=== PATIENT | female | born 1995 | race Caucasian/White ===

== ENCOUNTER 2017-01-30 16:42 | Emergency (ER) | payer SELFPAY ==
[2017-01-30] MEDS ORDERED: XYLOCAINE 2%/EPI 1:100,000 INFILTRATI ONE (19:24)
[2017-01-30] MEDS ORDERED: ULTRAM PO ONE (19:25)
[2017-01-30 20:53] VITALS: BP 122/84
--- NOTE | 2017-01-30 20:53 | Emergency Department Report ---
Entered by MEGAN ACOSTA, acting as scribe for ENRIQUETA FERNANDEZ NP. - General Chief complaint: Skin/Abscess/Foreign Body Stated complaint: CYST UPPER BACK OF NECK Time Seen by Provider: 01/30/17 18:54 Source: patient Mode of arrival: Ambulatory Limitations: No Limitations - History of Present Illness Initial comments: 22 y/o female with no significant PMHx, presents to the ED c/o area of swelling/ possible boil on the right posterior shoulder area beginning 4 days ago. She states the swelling increased the first two days after presentation, but has actually improved in the last 2 days. Associated symptoms of headache, and neck and back pain that is "aching" in quality, but she denies headache in the ED, nausea, vomiting, diarrhea, fever, numbness, and weakness. Noted the patient has a corporate driver to take her home and denies that she drove to the ED today. MD complaint: abscess/boil -: days(s) (4) Location: back (right posterior shoulder) Severity: severe Severity scale (0 -10): 10 Quality: aching, constant Consistency: constant Improves with: none Worsens with: palpation Context: none, other (unknw) Associated symptoms: other (headache, back pain, neck pain, but she denies headache in the ED, fever, nausea, vomiting, diarrhea) Treatments Prior to Arrival: none - Related Data Previous Rx's Medication Instructions Recorded Last Taken Type HYDROcodone/APAP 7.5-325 [Brinkley 1 each PO Q6HR PRN 5 Days 01/30/17 Unknown Rx 7.5/325] Sulfamethoxazole/Trimethoprim 1 each PO BID 7 Days 01/30/17 Unknown Rx [Bactrim DS TAB] Allergies Allergy/AdvReac Type Severity Reaction Status Date / Time tomato Allergy Swelling Verified 01/30/17 16:55 Abscess Boil HPI - HPI Chief Complaint: Skin/Abscess/Foreign Body Stated Complaint: CYST UPPER BACK OF NECK Time Seen by Provider: 01/30/17 18:54 Home Medications: Previous Rx's Medication Instructions Recorded Last Taken Type HYDROcodone/APAP 7.5-325 [Brinkley 1 each PO Q6HR PRN 5 Days 01/30/17 Unknown Rx 7.5/325] Sulfamethoxazole/Trimethoprim 1 each PO BID 7 Days 01/30/17 Unknown Rx [Bactrim DS TAB] Allergies/Adverse Reactions: Allergies Allergy/AdvReac Type Severity Reaction Status Date / Time tomato Allergy Swelling Verified 01/30/17 16:55 ED Review of Systems Comment: All other systems reviewed and negative Constitutional: denies: fever Eyes: denies: eye pain, eye discharge, vision change ENT: denies: ear pain, throat pain Respiratory: denies: cough, shortness of breath, wheezing Cardiovascular: denies: chest pain, palpitations Endocrine: no symptoms reported Gastrointestinal: denies: nausea, vomiting, diarrhea Genitourinary: denies: urgency, dysuria, discharge Musculoskeletal: back pain ("aching", from the boil on the right posterior back) Skin: other (area of swelling on the right posterior shoulder, denies drainage from the affected area) Neurological: headache (but patient denies headache) Psychiatric: denies: anxiety, depression Hematological/Lymphatic: denies: easy bleeding, easy bruising ED Past Medical Hx - Past Medical History Previous Medical History?: No - Surgical History Hx Breast Surgery: Yes (BREAST REDUCTION) - Social History Smoking Status: Never Smoker Substance Use Type: None - Medications Home Medications: Home Medications Medication Instructions Recorded Confirmed Last Taken Type HYDROcodone/APAP 7.5-325 [Brinkley 1 each PO Q6HR PRN 5 Days 01/30/17 Unknown Rx 7.5/325] Sulfamethoxazole/Trimethoprim 1 each PO BID 7 Days 01/30/17 Unknown Rx [Bactrim DS TAB] ED Physical Exam - General Limitations: No Limitations General appearance: alert, in no apparent distress - Head Head exam: Present: atraumatic, normocephalic - Eye Eye exam: Present: normal appearance, EOMI - ENT ENT exam: Present: normal external ear exam - Neck Neck exam: Present: normal inspection, full ROM. Absent: tenderness - Respiratory Respiratory exam: Present: normal lung sounds bilaterally. Absent: respiratory distress, wheezes, rales, rhonchi, stridor - Cardiovascular Cardiovascular Exam: Present: regular rate, normal rhythm, normal heart sounds. Absent: systolic murmur, diastolic murmur, rubs, gallop - GI/Abdominal GI/Abdominal exam: Present: soft. Absent: distended, tenderness - Extremities Exam Extremities exam: Present: normal inspection, full ROM - Back Exam Back exam: Present: full ROM, other (noted is a 4 cm abscess on the right posterior shoulder area that is fluctuant and tender to palpation, area is edematous) - Neurological Exam Neurological exam: Present: alert, oriented X3, CN II-XII intact, normal gait - Psychiatric Psychiatric exam: Present: normal affect, normal mood - Skin Skin exam: Present: warm, dry, intact, normal color, other (noted is a 4 cm abscess on the right posterior shoulder area that is fluctuant, edematous, and tender to palpation). Absent: rash ED Course Vital Signs 01/30/17 16:58 Temperature 98.1 F Pulse Rate 87 Respiratory 18 Rate Blood Pressure 136/98 O2 Sat by Pulse 98 Oximetry - Reevaluation(s) Reevaluation #1: 01/30/17 20:24 Patient tolerated procedure well. No signs of distress noted. - I & D Right Posterior Shoulder Type of Procedure: Complex Site: right posterior shoulder, approximately 4 cm abscess in the area Blade Size: 11 I & D Procedure: gauze wick placed (1/4 iodoform packing) Progress: Under sterile procedure , I used betadine to clean the area. I then used 3 cc's of 1% lidocaine with epi, injected at site with 26G 1.5 needle. Approximately 1 cm incision made at the site. + Purulent drainage noted. I interior broken up with hemostat. Patient wound then has been flushed with 30 cc's of normal saline. very minimal bleeding at the site. Decreased swelling at site. Packed wound with 1/4 iodoform. Sterile dressing placed on incision site. Patient tolerated procedure well, denies dizziness or headache following the procedure. Drained moderate amount of purulent fluid with associated foul odor from the area. ED Medical Decision Making - Medical Decision Making ED course: 23-year-old female that presents with an abscess to the right posterior shoulder. 1- I/D to the right posterior shoulder. 2- Patient tolerated procedure well. No signs of distress noted. 3- patient received Bactrim DS at discharge. 4- at the time of discharge the patient does not seem toxic or ill appearance. Patient agrees to discharge plan. No further questions noted. 5- I instructed the patient to return in 48 hours for a removal of packing. ED Disposition Clinical Impression: Abscess Disposition: DISCHARGED TO HOME OR SELFCARE Is pt being admited?: No Does the pt Need Aspirin: No Condition: Stable Instructions: Abscess (ED) Additional Instructions: Please follow up in primary care doctor in 3-5 days. Return to [facility] ER in 48 hours for removal of the packing. If symptoms worsen this report back to emergency room. Take antibiotics as prescribed. Finish full course of antibiotics. Do not operate heavy machinery while taking Brinkley. Prescriptions: HYDROcodone/APAP 7.5-325 [Brinkley 7.5/325] 1 each PO Q6HR PRN 5 Days PRN Reason: Pain Sulfamethoxazole/Trimethoprim [Bactrim DS TAB] 1 each PO BID 7 Days Referrals: PRIMARY CARE,MD [Primary Care Provider] - 3-5 Days Forms: Work/School Release Form(ED) This documentation as recorded by the DAVE sotomayor GRACE,accurately reflects the service I personally performed and the decisions made by ,ENRIQUETA FERNANDEZ, NEEDLE MOLDER.
== END 2017-01-30 20:51 | disposition home or self-care (01) ==
LOC: ED 16:42
DX: L02.413 Cutaneous abscess of right upper limb (principal); Z91.018 Allergy to other foods